=== PATIENT | male | born 1980 | race Caucasian/White ===

== ENCOUNTER → 2023-04-01 | Outpatient (CLI) | payer OTHER ==
--- NOTE | 2023-04-01 10:38 | Diagnostic Imaging Report ---
HISTORY: Thoracic back pain. COMPARISON: None TECHNIQUE: Multiplanar multisequence noncontrast MRI examination of the thoracic spine. FINDINGS: Alignment of the thoracic spine appears normal with no spondylolisthesis. Vertebral body heights are preserved. Disc heights are generally well preserved. No acute fracture is seen. There is a mild disc bulge at T11-T12. Soft tissues about the thoracic spine demonstrate no acute abnormality. There is minimal spinal canal narrowing at T11-T12. There is mild right foraminal narrowing at T1-T2. There is mild left foraminal narrowing at T1-T2 and T11-T12. IMPRESSION: 1. Mild degenerative change in the thoracic spine. No high-grade spinal canal or foraminal stenosis. No acute fracture seen. Dictated by: Dictated on workstation # [id number]
== END ==
LOC: RAD 09:30
PROVIDERS: ATTEND Internal Medicine Endocrinology, Diabetes & Metabolism
DX: M54.6 Pain in thoracic spine (principal)
CPT/HCPCS: 72146